=== PATIENT | female | born 1995 | race Caucasian/White ===

== ENCOUNTER 2018-07-26 19:06 | Emergency (ER) | payer SELFPAY ==
[~2018-07-26] VITALS: Ht 162.6 cm; Wt 59.1 kg
[~2018-07-26 19:06] MED LIST: ADDERALL5 MG PO; YAZ 28 3 MG-0.01 TAB PO
[2018-07-26 19:17] VITALS: BP 130/88; PULSE 93; TEMP 98.6
[2018-07-26] MEDS ORDERED: XANAX .25M0.25 MG/TA PO (21:25)
[2018-07-26] MEDS ORDERED: BIRTH CONTROL (21:26)
== END 2018-07-26 22:00 | disposition home or self-care (01) ==
LOC: COL.ER 19:06
DX: S00.93XA Contusion of unspecified part of head, initial encounter (principal); W22.8XXA Striking against or struck by other objects, initial encounter; Y92.59 Other trade areas as the place of occurrence of the external cause